=== PATIENT | male | born 2000 | race Caucasian/White ===

== ENCOUNTER 2021-10-15 18:54 | Emergency (ER) | payer SELFPAY ==
[2021-10-15 19:23] VITALS: BP 133/73; PULSE 77; RESP 18; TEMP 36.8; O2SAT 98; BMI 31.1
--- NOTE | 2021-10-15 21:40 | W.ED.ANXIETY ---
HPI - Anxiety General: Chief Complaint: Anxiety Stated Complaint: Anxiety Attack Time Seen by Provider: 10/15/21 21:17 History of Present Illness: Patient is a 21-year-old male comes to the ED with anxiety. Patient says he is been having these anxiety attacks for the past couple weeks. He says watching news causes increased anxiety and stress. Sometimes he will start feeling a little chest discomfort and feeling short of breath during more acute episodes. They resolve after he takes some deep breaths. He is currently trying to get set up with behavioral health to be evaluated for anxiety.. Denies any SI. Associated symptoms: Deny chest pain, chills, fever(s), headache(s), nausea, palpitations or vomiting Review of Systems Const: Denies: fever(s), chills or fatigue Eyes: Denies: change in vision or eye discomfort ENMT: Denies: throat pain, odynophagia, nasal discharge or nasal congestion Card: Denies: chest pain, palpitations, edema, swelling of feet/ankles, dyspnea on exertion or orthopnea Resp: Denies: dyspnea, productive cough or non-productive cough GI: Denies: abdominal pain, nausea, vomiting, diarrhea, constipation or hematochezia : Denies: flank pain, difficulty urinating, dysuria or hematuria Musc: Denies: neck pain, back pain or extremity swelling Skin/Breast: Denies: rash or new lesions Neuro: Denies: headache(s), numbness in extremities or weakness in extremities Psych: Reports: anxiety; Denies: suicidal ideation or homicidal ideation [facility] ED PFSH: Medical History No pertinent family history Surgical History No pertinent past surgical history Physical Exam Const: COMMON NORMALS: no acute distress, patient oriented x3, healthy appearing and alert GENERAL APPEARANCE: cooperative and comfortable HENMT: COMMON NORMALS: normocephalic HEAD & SCALP: normocephalic MOUTH: Normal oral and palatal mucosa present THROAT: posterior oropharynx normal and uvula midline Neck/C-Spine: COMMON NORMALS: supple GENERAL: Yes normal visual inspection Resp: COMMON NORMALS: normal respiratory effort, No retractions, No use of accessory muscles and clear to auscultation bilaterally AUSCULTATION: clear to auscultation bilaterally Cardio: COMMON NORMALS: regular rate, regular rhythm, S1 normal heart sound present, S2 normal heart sound present, No gallops present (Cardio), No clicks present (Cardio), No murmurs present (Cardio) and Peripheral pulses 2+ throughout RATE: regular rate RHYTHM: regular rhythm HEART SOUNDS: S1 normal heart sound present and S2 normal heart sound present PERIPHERAL PULSES: Peripheral pulses 2+ throughout GI: COMMON NORMALS: Normal to inspection, nondistended, normoactive bowel sounds present, Soft to palpation, non-tender and no masses PALPATION: Yes Soft to palpation : COMMON NORMALS: Yes no CVA tenderness BLADDER/KIDNEY EXAM: Yes no CVA tenderness Back/Pelvis: COMMON NORMALS: no CVA tenderness Extremity: COMMON NORMALS: normal to inspection Neuro: COMMON NORMALS: patient oriented x3 and moves all extremities SENSORIUM/ORIENTATION: Yes alert Skin: GENERAL SKIN EXAM: dry skin Course Vital Signs: Vital signs: Vital Signs Temperature 98.3 F 10/15/21 19:23 Pulse Rate 77 10/15/21 19:23 Respiratory Rate 18 10/15/21 19:23 Blood Pressure 133/73 10/15/21 19:23 Pulse Oximetry 98 10/15/21 19:23 MDM - Anxiety Medical Decision Making Patient is a healthy-appearing 21-year-old male comes to the ED with acute anxiety. He has been having these episodes for the past couple weeks and is currently trying to get in with behavioral health to be evaluated for anxiety. Denies any SI or HI. Vitals are stable. Patient appears in no acute distress or pain here in the ED. Patient was given a dose of Ativan to help with anxiety and was discharged home with a prescription for Vistaril. I placed an order with case management for patient be set up with a referral to behavioral health for follow-up. Return to ED precautions given. Patient understood and agreed with plan. Discharge Plan Discharge Patient Disposition: Home Clinical Impression: Acute anxiety Condition: Stable Prescriptions: New Vistaril 50 mg capsule 50 mg PO Q8H PRN (Reason: acute anxiety) Qty: 20 0RF Discharge Orders: Discharge ED (Routine); Ordered 10/15/21 Ordered By: Sukhi Stanley Referrals: Zaheer Tyson DO [Primary Care Provider] - Discharge Diet: Regular Discharge Activity: Increase activity as tolerated Patient Instructions: Anxiety (ED) Activity Restrictions/Additional Instructions: Follow-up with medical provider as directed in the next 5 to 10 days for reevaluation. Case management should be contacting you in the next several days to set up an appointment with behavioral health. Take medication as prescribed. Vistaril can cause some drowsiness so do not take during the day if you are going to be driving or operating any machinery. Return to the ER or your medical provider if condition worsens. Please read and understand discharge instructions. Thank you for choosing [facility] for your healthcare needs today. Please realize this is an emergency room and that we are providing you with a medical screening exam and this may not be complete and all inclusive of all the testing and or work up that you may need to determine your ailment or severity of your illness. It is very important that you follow up as instructed or that you return to the Emergency Department should you have concerns or if your condition changes or worsens in any way. Coding Level of Care Code ED Wireless Cellular Technician for Demetrio Randall Exam Comprehensive
[2021-10-15] MEDS: LORazepam 1 mg Tablet PO (22:03)
--- NOTE | 2021-10-18 13:58 | DCPLANNER ---
sports manager had message to speak with patient about services at [facility]. sports manager spoke with patient about how to get started at [facility]. sports manager told patient to go to [facility] anyday of the week from 7:30 - 3:00 to get the new patient paperwork, fill it out and turn it back in. After the paperwork is filled out and turned in, then clinic will schedule the initial assessment. Patient stated that he understood, and that he will get paperwork and fill it out.
== END 2021-10-15 22:04 | disposition home or self-care (01) ==
PROVIDERS: Emergency Provider Physician Assistant; PCP Internal Medicine
DX: F41.9 Anxiety disorder, unspecified (principal)
CPT/HCPCS: 99283

== ENCOUNTER 2021-11-28 15:40 | Emergency (ER) | payer SELFPAY ==
[2021-11-28 16:01] VITALS: BP 129/73; PULSE 87; RESP 13; TEMP 36.8; O2SAT 98; BMI 31.1
--- NOTE | 2021-11-28 16:11 | ED_ITS ---
HPI - Eye Problem General: Chief complaint: Eye Problems Stated complaint: Metal in left eye Time Seen by Provider: 11/28/21 16:06 Source: patient Mode of arrival: ambulatory Limitations: no limitations History of Present Illness: 21-year-old male states he was grinding metal an hour ago he states he was wearing a face shield states that it felt a piece metal get into his left eye states has been able to see it was unable to remove the piece of metal. States is causing him some pain he rates pain a 6 out of 10 denies any change in his vision denies any other injuries Associated symptoms: Denies fever(s), headache(s), nausea, neck pain or vomiting Review of Systems Const: Denies: fever(s), chills, body aches or change in appetite Eyes: Reports: eye discomfort ENMT: Denies: throat pain or dental pain Card: Denies: chest pain Resp: Denies: dyspnea GI: Denies: abdominal pain, nausea, vomiting or diarrhea : Denies: dysuria Musc: Denies: neck pain or back pain Skin/Breast: Denies: rash Neuro: Denies: headache(s) Psych: Denies: depression Abbe/Lymph: Denies: easy bruising All/Imm: Denies: urticaria PFSH ED PFSH: Medical History No pertinent family history Surgical History No pertinent past surgical history Physical Exam Const: COMMON NORMALS: no acute distress, patient oriented x3 and healthy appearing HENMT: COMMON NORMALS: normocephalic and atraumatic HEAD & SCALP: normocephalic and atraumatic Eye: COMMON NORMALS: Equal, round and reactive pupils present and EOMs intact bilaterally PUPIL: Yes Equal, round and reactive pupils present OTHER: Foreign body noted to left cornea Neck/C-Spine: COMMON NORMALS: full ROM and supple Chest: COMMONS NORMALS: normal inspection of the chest and normal palpation of entire chest wall Resp: COMMON NORMALS: normal respiratory effort, No retractions, No use of accessory muscles and clear to auscultation bilaterally AUSCULTATION: clear to auscultation bilaterally Cardio: COMMON NORMALS: regular rate, regular rhythm and No murmurs present (Cardio) RATE: regular rate RHYTHM: regular rhythm GI: COMMON NORMALS: Normal to inspection, nondistended, normoactive bowel sounds present, Soft to palpation, non-tender and no masses PALPATION: Yes S oft to palpation Extremity: COMMON NORMALS: normal to inspection and full ROM Neuro: COMMON NORMALS: patient oriented x3, moves all extremities and no focal motor deficits Psych: COMMON NORMALS: mental status grossly normal, Normal thought process present and cooperative THOUGHT PROCESS: Normal thought process present Skin: COMMON NORMALS: no rashes or lesions noted and no wounds GENERAL SKIN EXAM: no rashes or lesions noted Course Vital Signs: Vital signs: Vital Signs Temperature 98.3 F 11/28/21 16:01 Pulse Rate 87 11/28/21 16:01 Respiratory Rate 13 11/28/21 16:01 Blood Pressure 129/73 11/28/21 16:01 Pulse Oximetry 98 11/28/21 16:01 MDM - Eye Problem Medical Decision Making Patient presents here with foreign body to his left eye was able to remove a large piece of metal with 20-gauge IV plastic catheter he still did have a rust ring who do not have any beds for the bur drill here I spoke to ophthalmology they are to see him tomorrow. Discharge Plan Discharge Patient Disposition: Home Clinical Impression: Foreign body, eye Qualifiers: Encounter type: initial encounter Laterality: right Qualified Code(s): T15.91XA - Foreign body on external eye, part unspecified, right eye, initial encounter Condition: Stable Prescriptions: New erythromycin 5 mg/gram (0.5 %) ointment 1 applic ophthalmic (eye) Q8H 5 Days Qty: 3.5 0RF No Action Vistaril 50 mg capsule 50 mg PO Q8H PRN (Reason: acute anxiety) Qty: 20 0RF Discharge Orders: Discharge ED (Routine); Ordered 11/28/21 Ordered By: Francisco Javier Meyer Referrals: Blas Barillas MD [Physician] - 1-3 days Zaheer Tyson DO [Primary Care Provider] - Discharge Diet: Advance as tolerated Discharge Activity: Resume usual activity Patient Instructions: Eye Foreign Body (ED) Coding Level of Care Code ED Gymnastics Coach Or Instructor for g Fwd Exam Comprehensive
[2021-11-28] MEDS: tetracaine 0.5% Op Soln 4 mL Btl 1 DROP EYE-LEFT (16:14)
--- NOTE | 2021-11-29 09:34 | DCPLANNER ---
Addendum entered by Renetta Fabian 11/30/21 13:32: geothermal plant manager called the office of Dr. Barillas to confirm that clinic received patients information. geothermal plant manager was told that patient did receive the referral, that an appointment was scheduled and that patient refused appointment, he stated that he could not pay for the visit. Original Note: geothermal plant manager had message to schedule a follow up appointment for patient with Dr. Barillas. geothermal plant manager faxed patients information to the office of Dr. Barillas. Patients information will be printed and reviewed, clinic will call patient with appointment information.
== END 2021-11-28 16:27 | disposition home or self-care (01) ==
PROVIDERS: Emergency Provider Emergency Medicine; PCP Internal Medicine
DX: T15.92XA Foreign body on external eye, part unspecified, left eye, initial encounter (principal); X58.XXXA Exposure to other specified factors, initial encounter
CPT/HCPCS: 99283

== ENCOUNTER 2025-02-27 01:35 | Inpatient (IN) | payer SELFPAY ==
[2025-02-27 02:00] VITALS: BP 150/86; PULSE 110; RESP 18; TEMP 36.8; O2SAT 97; BMI 34.5
--- NOTE | 2025-02-27 02:11 | XRR_ITS ---
PROCEDURE INFORMATION: Exam: XR Chest Exam date and time: 02/27/2025 2:18 AM Age: 25 years old Clinical indication: Other: Bh screening; Additional info: Psych TECHNIQUE: Imaging protocol: Radiologic exam of the chest. Views: 1 view. COMPARISON: No relevant prior studies available. FINDINGS: Lungs: Questionable mild airspace disease in the left lung base near the cardiac apex. Mild haziness in the medial retrocardiac region as well. Right lung appears grossly clear. Pleural spaces: Unremarkable. No pleural effusion. No pneumothorax. Heart/Mediastinum: Unremarkable. No cardiomegaly. Bones/joints: Unremarkable. XR/XR chest 1V portable [id number] IMPRESSION: Questionable left basilar airspace disease.
--- NOTE | 2025-02-27 02:12 | ED.C_ITS ---
HPI - Psych 2 General: Chief Complaint: Psychiatric Symptoms Stated Complaint: Just wanting to be seen Time Seen by Provider: 02/27/25 02:11 History of Present Illness: 25-year-old man who presents the emergen cy room with depression and alcohol problems and now thoughts of wanting to kill himself. He does not have a specific plan. He has no previous psychiatric history. He does admit to using alcohol today. Related Data Previous Rx's ?Medication ?Instructions ?Recorded hydroxyzine pamoate 50 mg capsule 50 mg PO Q8H PRN acu te anxiety #20 10/15/21 (Vistaril) caps Allergies Allergy/AdvReac Type Severity Reaction Status Date / Time No Known Allergies Allergy Verified 02/27/25 02:06 Review of Systems 2 Narrative: Constitutional symptoms: Negative except as documented in HPI. Skin symptoms: Negative except as documented in HPI. Eye symptoms: Negative except as documented in HPI. ENMT symptoms: Negative except as documented in HPI. Respiratory symptoms: Negative except as documented in HPI. Cardiovascular symptoms: Negative except as documented in HPI. Gastrointestinal symptoms: Negative except as documented in HPI. Genitourinary symptoms: Negative except as documented in HPI. Musculoskeletal symptoms: Negative except as documented in HPI. Neurologic symptoms: Negative except as documented in HPI. Psychiatric symptoms: Negative except as documented in HPI. Endocrine symptoms: Negative except as documented in HPI. PFSH ED 2 PFSH: Medical History (Updated 02/27/25 @ 03:18 by Oma Salvador MD) No pertinent family history Surgical History No pertinent past surgical history Physical Exam 2 Narrative: EXAM NARRATIVE: General: Alert, no acute distress. Skin: Warm, dry. Head: Normocephalic, atraumatic. Neck: Supple, trachea midline. Eye: Extraocular movements are intact. Ears, nose, mouth and throat: mucosa moist. Cardiovascular: Regular, Normal peripheral perfusion. Respiratory: Lungs are clear to auscultation, respirations are non-labored, breath sounds are equal, Symmetrical chest wall expansion. Gastrointestinal: Soft, Nontender, Non distended Musculoskeletal: Normal ROM, no deformity. Neurological: Alert and oriented, No focal neurological deficit observed. Psychiatric: Cooperative, appropriate mood & affect. Course 2 Vital Signs: Vital signs: Vital Signs Temperature 98.3 F 02/27/25 02:00 Pulse Rate 110 H 02/27/25 02:00 Respiratory Rate 18 02/27/25 02:00 Blood Pressure 150/86 02/27/25 02:00 Pulse Oximetry 97 02/27/25 02:00 Oxygen Delivery Me thod Room Air 02/27/25 02:00 MDM - Psych Medical Decision Making Differential diagnosis: Patient with reported depression and suicidal ideation. concerns for infection, alcohol intoxication, cardiac issues or other medical problems prior to psychiatric admission. Workup: labwork, ekg ordered to evaluate the pathologies and to clear the patient medically prior to psychiatric admission EKG: Time 327. Rate 91. Normal sinus rhythm, No ST-T changes, no ectopy, normal TX & QRS intervals, This was reviewed and interpreted by myself the ER physician at 335 Chest x-ray: No acute process. No infiltrate. No pneumothorax. This was reviewed and interpreted by myself the emergency room physician. I also reviewed the radiology report. Patient does not have any symptoms of pneumonia so this questionable left basilar airspace disease is probably atelectasis Lab Review: Laboratory results were reviewed and interpreted by myself the emergency room physician. - Medically cleared. - EKG shows no ischemic changes. - Blood alcohol level is 179 initially -Tylenol and salicylate levels are negative. - Drug screen is negative - No signs of infection, urinalysis clear and white count is not elevated - No anemia. - BUN and creatinine are within normal limits. ?Flu and COVID are negative Consultation: Assessment and plan: Suicidal ideation Depression Alcohol intoxication Alcohol abuse -Admission to neuropsychiatric unit for continued evaluation and treatment. Patient will require transfer to an outside facility. - All lab work was reviewed and interpreted personally by myself, the ER physician - Evaluation and treatment of this problem were appropriate in the emergency setting Lab Data 02/27/25 02:33 02/27/25 02:33 Radiology Impressions Chest X-Ray 02/27/25 02:11 IMPRESSION: Questionable left basilar airspace disease. Laboratory Results WBC 8.74 10^3/uL (3.29-11.43) 02/27/25 02:33 RBC 5.44 10^6/uL (3.85-5.65) 02/27/25 02:33 Hgb 16.70 g/dL (11.27-16.99) 02/27/25 02:33 Hct 47.8 % (37-53) 02/27/25 02:33 MCV 87.9 fl (82-101) 02/27/25 02:33 MCH 30.7 pg (27-33) 02/27/25 02:33 MCHC 34.9 g/dL (30-55) 02/27/25 02:33 RDW 12.2 % (12.1-15.1) 02/27/25 02:33 Plt Count 292 10^3/cmm (157-399) 02/27/25 02:33 MPV 9.9 fL (7.4-10.4) 02/27/25 02:33 Neut % (Auto) 60.3 % 02/27/25 02:33 Lymph % (Auto) 28.1 % 02/27/25 02:33 Mercer % (Auto) 6.3 % 02/27/25 02:33 Eos % (Auto) 3.3 % 02/27/25 02:33 Baso % (Auto) 0.6 % 02/27/25 02:33 Neut # (Auto) 5.27 10^3/uL (1.8-7.7) 02/27/25 02:33 Lymph # (Auto) 2.5 10^3/uL (0.8-4.8) 02/27/25 02:33 [place]cer # (Auto) 0.6 10^3/uL (0.2-0.9) 02/27/25 02:33 Eos # (Auto) 0.3 10^3/uL (0.0-0.8) 02/27/25 02:33 Baso # (Auto) 0.1 10^3/uL (0.0-0.1) 02/27/25 02:33 Nucleated RBC % (auto) 0 % 02/27/25 02:33 Nucleated RBCs # 0.0 /100WBC 02/27/25 02:33 Sodium 140 mmol/L (136-145) 02/27/25 02:33 Potassium 3.8 mmol/L (3.5-5.1) 02/27/25 02:33 Chloride 104 mmol/L (98-107) 02/27/25 02:33 Carbon Dioxide 20 mmol/L (22-29) L 02/27/25 02:33 Anion Gap 19.8 (5-19) H 02/27/25 02:33 BUN 9 mg/dL (6-20) 02/27/25 02:33 Creatinine 1.0 mg/dL (0.7-1.2) 02/27/25 02:33 GFR Calculation 91.0 mL/min (90-130) 02/27/25 02:33 Glucose 100 mg/dL (65-115) 02/27/25 02:33 Calculated Osmolality 289 mOsm/kg (285-295) 02/27/25 02:33 Calcium 9.0 mg/dL (8.5-10.5) 02/27/25 02:33 Total Bilirubin 0.5 mg/dL (0.15-1.2) 02/27/25 02:33 AST 24 U/L (0-40) 02/27/25 02:33 ALT 41 U/L (0-41) 02/27/25 02:33 Alkaline Phosphatase 114 U/L (40-130) 02/27/25 02:33 Total Protein 7.9 g/dL (6.6-8.7) 02/27/25 02:33 Albumin 4.7 g/dL (3.5-5.2) 02/27/25 02:33 Globulin 3.2 g/dL (1.3-4.6) 02/27/25 02:33 TSH 2.29 uIU/mL (0.27-4.20) 02/27/25 02:33 Urine Color Yellow (Yellow) 02/27/25 02:35 Urine Appearance Clear (CLEAR) 02/27/25 02:35 Urine pH 5.5 (5-7) 02/27/25 02:35 Ur Specific [place] 1.014 (1.005-1.030) 02/27/25 02:35 Urine Protein Trace (Negative) A 02/27/25 02:35 Urine Glucose (UA) Negative (Normal) 02/27/25 02:35 Urine Ketones Trace (Negative) 02/27/25 02:35 Urine Blood Negative (Negative) 02/27/25 02:35 Urine Nitrate Negative (Negative) 02/27/25 02:35 Urine Bilirubin Negative (Negative) 02/27/25 02:35 Urine Urobilinogen 1.0 mg/dL (Negative) 02/27/25 02:35 Ur Leukocyte Esterase Negative (Negative) 02/27/25 02:35 Urine RBC 0-2 /hpf (0-2) 02/27/25 02:35 Urine WBC 0-5 /hpf (0-5) 02/27/25 02:35 Ur Squamous Epith Cells 0-5 /hpf (0-5) 02/27/25 02:35 Amorphous Sediment Not Reportable 02/27/25 02:35 Urine Bacteria None seen /hpf (NONE) 02/27/25 02:35 Hyaline Casts 3.30 /lpf 02/27/25 02:35 Salicylates < 0.3 mg/dL (3-10) L 02/27/25 02:33 Urine Opiates Screen Negative ng/mL (Negative) 02/27/25 02:35 Acetaminophen < 5.0 ug/mL (10-30) L 02/27/25 02:33 Ur Barbiturates Screen Negative ng/mL (Negative) 02/27/25 02:35 Ur Phencyclidine Scrn Negative ng/mL (Negative) 02/27/25 02:35 Ur Amphetamines Screen Negative ng/mL (Negative) 02/27/25 02:35 U Benzodiazepines Scrn Negative ng/mL (Negative) 02/27/25 02:35 Urine Cocaine Screen Negative ng/mL (Negative) 02/27/25 02:35 U Marijuana (THC) Screen Negative ng/mL (Negative) 02/27/25 02:35 Ethyl Alcohol 179 mg/dL (0-10) H 02/27/25 02:33 Influenza A (PCR) Negative (Negative) 02/27/25 03:21 Influenza Type B (PCR) Negative (Negative) 02/27/25 03:21 RSV (PCR) Negative (Negative) 02/27/25 03:21 SARS-CoV-2 (PCR) Negative (Negative) 02/27/25 03:21 All radiology interpretation(s) finalized by discharge Discharge Plan Discharge Patient Disposition: Admitted As Inpatient Clinical Impression: Depression, Suicidal ideation, Alcohol abuse, Alcohol intoxication Condition: Stable Coding Level of Care Code ED Field Technical Support Consultant for Demetrio Randall
[2025-02-27 02:37] LABS: Hematocrit 47.8 % (37-53); Hemoglobin 16.70 g/dL (11.27-16.99); Mean Corpuscular HGB Conc 34.9 g/dL (30-55); Mean Corpuscular Hemoglobin 30.7 pg (27-33); Mean Corpuscular Volume 87.9 fl (82-101); Nucleated Red Blood Cells % 0 %; Platelet Count 292 10^3/cmm (157-399); Red Blood Count 5.44 10^6/uL (3.85-5.65); White Blood Count 8.74 10^3/uL (3.29-11.43)
[2025-02-27 02:41] LABS: Glucose Urine UA Negative (Normal); Nitrate Urine Negative (Negative); Specific Gravity, Urine 1.014 (1.005-1.030)
[2025-02-27 02:46] LABS: Add Urine Microscopic? YES
[2025-02-27 02:49] LABS: PCP Screen Urine Negative (Negative)
[2025-02-27 03:07] LABS: Alanine Aminotransferase 41 U/L (0-41); Albumin Level 4.7 g/dL (3.5-5.2); Alcohol Level 179 mg/dL (0-10); Alkaline Phosphatase 114 U/L (40-130); Anion Gap 19.8 (5-19); Aspartate Amino Transferase 24 U/L (0-40); Blood Urea Nitrogen 9 mg/dL (6-20); Calcium 9.0 mg/dL (8.5-10.5); Carbon Dioxide 20 mmol/L (22-29); Chloride 104 mmol/L (98-107); Creatinine Clr Calc Pharmacy 148.2644; Globulin 3.2 g/dL (1.3-4.6); Glucose 100 mg/dL (65-115); Osmolality Calculated 289 mOsm/kg (285-295); Potassium 3.8 mmol/L (3.5-5.1); Sodium 140 mmol/L (136-145); Thyroid Stimulating Hormone 2.29 uIU/mL (0.27-4.20); Total Protein 7.9 g/dL (6.6-8.7)
[2025-02-27 03:09] LABS: Acetaminophen < 5.0 ug/mL (10-30); Salicylate < 0.3 mg/dL (3-10)
--- NOTE | 2025-02-27 03:27 | ECG_ITS ---
[facility]25[facility]27 Pat Name: Kvng Varner Department: Room: Gender: Male Rapid Outsole Stitcher: : 2000 Requested By: Oma Patricio Order Number: [id number] Calvillo MD: Lorenzo Mendoza M.D. Measurements Intervals [place] Rate: 91 P: 73 VA: 156 QRS: 29 QRSD: 98 T: 48 QT: 333 QTc: 410 Interpretive Statements SINUS RHYTHM No previous ECG available for comparison Electronically Signed On 02-27-2025 10:20:40 CDT by Lorenzo Mendoza M.D. [email or web address] [id number]
[2025-02-27 04:04] LABS: Respiratory Syncytial Virus Ce NEGATIVE (Negative); SARS-CoV-2 PCR NEGATIVE (Negative)
--- NOTE | 2025-02-27 09:43 | PC.PHAR ---
Addendum entered by Jerri Solo 02/27/25 09:48: rx for Cipro 500mg bid, Flagyl 500mg q8h, and Promethazine 25mg q6h prn-all 3 were filled 04/10/2023. Finished therapy. Original Note: Pt has rx for Hydroxyzine pamoate 50mg q8h prn anxiety last fill 10/15/21. No other medications found.
--- NOTE | 2025-02-27 11:18 | PC.NURSE ---
Involuntary 96 hour hold rights read and reviewed with patient. Brenda from security present during reading of rights. Patient verbalized understandings and copy of rights given to patient.
[2025-02-27 14:39] VITALS: BP 126/78; PULSE 101; RESP 16; TEMP 36.7; O2SAT 95
[2025-02-27 14:57] VITALS: PULSE 72; O2SAT 99
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
[2025-02-27 16:00] VITALS: BP 126/78; PULSE 101; RESP 16; TEMP 36.7; O2SAT 95
[2025-02-27 20:00] VITALS: BP 138/80; PULSE 73; RESP 19; TEMP 36.8; O2SAT 97
[2025-02-28] VITALS: BP 118/73; PULSE 76; RESP 19; TEMP 37.1; O2SAT 98
--- NOTE | 2025-02-28 06:40 | PC.NURSE ---
pt refused vs, nurse notified, resp 17
[2025-02-28 08:00] VITALS: BP 135/76; PULSE 91; RESP 16; TEMP 36.5; O2SAT 93
[2025-02-28] MEDS: multivitamin therapeutic Tablet 1 TAB PO (08:38)
--- NOTE | 2025-02-28 09:55 | P.NPUHP_ITS ---
Providers/Chief Complaint 2 Admitting Physician: Hector Sung MD Primary Care Provider: Zaheer Tyson DO Chief Complaint: Just wanting to be seen HPI NPU History of Present Illness Kvng Varner is a 25 year old male with no prior history of psychiatric treatment who presented to the emergency department with a blood alcohol level of 179 with reports of wanting to kill himself. He had denied any specific plan on admission. He was admitted to the neuropsychiatric unit for further evaluation and treatment. The patient reports having used alcohol on the day prior to admission. He reports that he had wanted to get some help with managing his anxiety. He reports that he has had panic attacks that are often triggered by periods of feeling as if someone in his family is potentially in danger. He reports that occasionally he has these periods where he gets chest pain and shortness of breath and feels like he is going to with reports that his mind races. He reports that they typically last 20 to 30 minutes. He reports that he does have a tendency to worry excessively. He had endorsed occasionally having thoughts of not wanting to wake up but reports no plan to harm himself. He endorses he has depression from time to time. 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 He reports no anhedonia. He reports no feelings of hopelessness or worthlessness. He does report at times feeling tired but reports that he remains productive at work. He reports adequate concentration. He reports no change in appetite. He denies any manic symptoms. He denied any psychotic symptoms. He had reported no prior history of blackouts or withdrawal symptoms from alcohol use. He reports that he drinks occasionally 3-5 beers a night but states that he can drink up to a half a case of beer but reports that he would be quite inebriated. Patient denies any illicit drug use. He denied any problems with social phobia. He denied any symptom suggestive obsessive-compulsive disorder. Patient did not endorse any symptoms suggestive of posttraumatic stress disorder. He had reported no significant changes in his life or recent financial or social stressors. Inpatient psychiatric history: None Outpatient psychiatric history: None Substance abuse history: He has no history of substance abuse treatment. He reports having used marijuana a few times in his life. He reports half a pack a day smoking. He reported having used alcohol since the age of 21. Medical history none Surgical history: Appendectomy Allergies: No known drug allergies Medications: None Legal history none Family psychiatric history: Strong family history of alcohol dependence in paternal side of the family. He reports his mother takes Zoloft for anxiety and depression. Social history: He had reported no history of problems with learning. He graduated with high school with no history of special education services. He was raised in a split household has his parents were when the patient was 6 months old. He is the youngest of 4 siblings. He has 3 half-sisters on his father side. He had endorsed no prior history of sexual physical or emotional abuse. He reported having a happy childhood. He was born in [place] and raised by his parents having graduated high school and never attending college. 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 Meds NPU Home Medications ?Medication ?Instructions ?Recorded ?Confirmed ?Last Taken ?Type No Known Home Medications 02/27/2501/30 Unknown History Allergies Allergy/AdvReac Type Severity Reaction Status Date / Time No Known Allergies Allergy Verified 02/27/25 02:06 PFS NPU 2 PFS: Medical History (Updated 02/28/25 @ 13:43 by Hector Sung MD) No pertinent family history Surgical History No pertinent past surgical history Mental Status Exam 2 MSE Comments: Patient appeared his stated age. He was pleasant and cooperative on interview. He appeared in no acute distress. There was no evidence of psychomotor agitation or psychomotor retardation. Speech was normal in regards to rate, rhythm, and prosody. His mood was described as okay. His affect appeared slightly restricted. His thought process was linear logical and goal-directed. His thought content revealed no active homicidal or suicidal ideation. There was no intent or plan. He did not appear to be responding internal stimuli. There was no evidence of delusional thinking. His attention span was good. His recent and remote memory were were both grossly intact. His insight was fair. His judgment appeared fair. His impulse control appeared limited. Vitals/I&O/Wt Last Vital Signs Temp 97.7 F 02/28/25 08:00 Pulse 91 02/28/25 08:00 Resp 16 02/28/25 08:00 BP 135/76 02/28/25 08:00 Pulse Ox 93 02/28/25 08:00 O2 Del Method Room Air 02/28/25 08:00 Weight last 48 hrs Weight 115.666 kg Data NPU 02/27/25 02:33 02/27/25 02:33 A&P Assessment and plan 1. Anxiety disorder, unspecified: 2. Suicidal ideation: 3. Depression: 4. Alcohol abuse: Plan: 25-year-old male with suicidal ideation with alcohol abuse with no prior history of psychiatric treatment endorsing history of panic attacks with some triggers along with some complaints of overall anxiety and occasional depression. #1.? Engage patient in individual milieu and group therapy. #2?? Recommend sober living treatment at the highest level of care to which the patient is willing to commit #3??? CIWA for alcohol withdrawal #4?? TO-15 minute checks? #5?? Will attempt to gather collateral information PDMP PDMP Reviewed: Not Reviewed Involuntary Hold Information 2 Hold Status: Legal Status: 96 Hour Hold Date/Time Hold Expires: 03/05/25 @0240 Attestations NPU 2 Medical Necessity Statement*: Inpatient hospitalization is medically necessary and deemed to be the clinically appropriate intervention at this time. Medications will be adjusted and initiated as indicated.? The patient will be hospitalized for at least 2 midnights.? The patient?s likely length of stay is 2 days. ? Coding Level of Care Code Acute Code for [facility] Fwd Diagnoses Anxiety disorder, unspecified F41.9 Suicidal ideation R45.851 Depression F32.A Alcohol abuse F10.10
[2025-02-28 11:45] VITALS: BP 147/90; PULSE 92; RESP 16; TEMP 36.6; O2SAT 97
--- NOTE | 2025-02-28 15:03 | W.PM.NPUDCS ---
Diagnoses at Discharge Discharge Diagnosis 1. Anxiety disorder, unspecified: 2. Suicidal ideation: 3. Depression: 4. Alcohol abuse: Reason for Visit Reason for Visit: Just wanting to be seen Brief History: History of Present Illness Kvng Varner is a 25 year old male with no prior history of psychiatric treatment who presented to the emergency department with a blood alcohol level of 179 with reports of wanting to kill himself. He had denied any specific plan on admission. He was admitted to the neuropsychiatric unit for further evaluation and treatment. The patient reports having used alcohol on the day prior to admission. He reports that he had wanted to get some help with managing his anxiety. He reports that he has had panic attacks that are often triggered by periods of feeling as if someone in his family is potentially in danger. He reports that occasionally he has these periods where he gets chest pain and shortness of breath and feels like he is going to with reports that his mind races. He reports that they typically last 20 to 30 minutes. He reports that he does have a tendency to worry excessively. He had endorsed occasionally having thoughts of not wanting to wake up but reports no plan to harm himself. He endorses he has depression from time to time. 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 He reports no anhedonia. He reports no feelings of hopelessness or worthlessness. He does report at times feeling tired but reports that he remains productive at work. He reports adequate concentration. He reports no change in appetite. He denies any manic symptoms. He denied any psychotic symptoms. He had reported no prior history of blackouts or withdrawal symptoms from alcohol use. He reports that he drinks occasionally 3-5 beers a night but states that he can drink up to a half a case of beer but reports that he would be quite inebriated. Patient denies any illicit drug use. He denied any problems with social phobia. He denied any symptom suggestive obsessive-compulsive disorder. Patient did not endorse any symptoms suggestive of posttraumatic stress disorder. He had reported no significant changes in his life or recent financial or social stressors. Inpatient psychiatric history: None Outpatient psychiatric history: None Substance abuse history: He has no history of substance abuse treatment. He reports having used marijuana a few times in his life. He reports half a pack a day smoking. He reported having used alcohol since the age of 21. Medical history none Surgical history: Appendectomy Allergies: No known drug allergies Medications: None Legal history none Family psychiatric history: Strong family history of alcohol dependence in paternal side of the family. He reports his mother takes Zoloft for anxiety and depression. Social history: He had reported no history of problems with learning. He graduated with high school with no history of special education services. He was raised in a split household has his parents were when the patient was 6 months old. He is the youngest of 4 siblings. He has 3 half-sisters on his father side. He had endorsed no prior history of sexual physical or emotional abuse. He reported having a happy childhood. He was born in [place] and raised by his parents having graduated high school and never attending college. 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 Hospital Course Hospital Course The patient was started on zoloft 25mg daily to target anxiety with a plan to increase to 50mg after 1 week. During the hospitalization, the patient had routine laboratory studies which were within normal limits except for a few outliers.? Additionally, there was a general medical evaluation which was also within normal limits and revealed no new acute processes.? At the time of discharge, lethality was denied and psychosis was absent. ? Mood and anxiety were well managed.? The patient endorsed a plan to avoid all drugs of abuse and follow up with the aftercare recommendations of the treatment team.? The patient was evaluated and deemed to be absent credible lethality and had achieved the maximum benefit from an inpatient hospitalization, and so was discharged. ? Involuntary Hold Information Hold Status: Legal Status: 96 Hour Hold Date/Time Hold Expires: 03/05/240 Mental Status Exam MSE Comments: Patient appeared his stated age. He was pleasant and cooperative on interview. He appeared in no acute distress. There was no evidence of psychomotor agitation or psychomotor retardation. Speech was normal in regards to rate, rhythm, and prosody. His mood was described as okay. His affect appeared slightly restricted. His thought process was linear logical and goal-directed. His thought content revealed no active homicidal or suicidal ideation. There was no intent or plan. He did not appear to be responding internal stimuli. There was no evidence of delusional thinking. His attention span was good. His recent and remote memory were were both grossly intact. His insight was fair. His judgment appeared fair. His impulse control appeared limited. Discharge Data Studies Completed and Pending: Completed Studies During Hospitalization Category Date Time Status XR chest 1V mindi ble [id number] Stat Exams 02/27/25 02:11 Completed Radiology Impressions Chest X-Ray 02/27/25 02:11 IMPRESSION: Questionable left basilar airspace disease. Laboratory Results WBC 8.74 10^3/uL (3.2 9-11.43) 02/27/25 02:33 RBC 5.44 10^6/uL (3.8 5-5.65) 02/27/25 02:33 Hgb 16.70 g/dL (11.27 -16.99) 02/27/25 02:33 Hct 47.8 % (37-53) 02/27/25 02:33 MCV 87.9 fl (82-101) 02/27/25 02:33 MCH 30.7 pg (27-33) 02/27/25 02:33 MCHC 34.9 g/dL (30-55) 02/27/25 02:33 RDW 12.2 % (12.1-15.1 ) 02/27/25 02:33 Plt Count 292 10^3/cmm (157 -399) 02/27/25 02:33 MPV 9.9 fL (7.4-10.4) 02/27/25 02:33 Neut % (Auto) 60.3 % 02/27/25 02:33 Lymph % (Auto) 28.1 % 02/27/25 02:33 Door % (Auto) 6.3 % 02/27/25 02:33 Eos % (Auto) 3.3 % 02/27/25 02:33 Baso % (Auto) 0.6 % 02/27/25 02:33 Neut # (Auto) 5.27 10^3/uL (1.8 -7.7) 02/27/25 02:33 Lymph # (Auto) 2.5 10^3/uL (0.8- 4.8) 02/27/25 02:33 Door # (Auto) 0.6 10^3/uL (0.2- 0.9) 02/27/25 02:33 Eos # (Auto) 0.3 10^3/uL (0.0- 0.8) 02/27/25 02:33 Baso # (Auto) 0.1 10^3/uL (0.0- 0.1) 02/27/25 02:33 Nucleated RBC % (a uto) 0 % 02/27/25 02:33 Nucleated RBCs # 0.0 /100WBC 02/27/25 02:33 Sodium 140 mmol/L (136-1 45) 02/27/25 02:33 Potassium 3.8 mmol/L (3.5-5 .1) 02/27/25 02:33 Chloride 104 mmol/L (98-10 7) 02/27/25 02:33 Carbon Dioxide 20 mmol/L (22-29) L 02/27/25 02:33 Anion Gap 19.8 (5-19) H 02/27/25 02:33 BUN 9 mg/dL (6-20) 02/27/25 02:33 Creatinine 1.0 mg/dL (0.7-1. 2) 02/27/25 02:33 GFR Calculation 91.0 mL/min (90-1 30) 02/27/25 02:33 Glucose 100 mg/dL (65-115 ) 02/27/25 02:33 Calculated Osmolal ity 289 mOsm/kg (285- 295) 02/27/25 02:33 Calcium 9.0 mg/dL (8.5-10 .5) 02/27/25 02:33 Total Bilirubin 0.5 mg/dL (0.15-1 .2) 02/27/25 02:33 AST 24 U/L (0-40) 02/27/25 02:33 ALT 41 U/L (0-41) 02/27/25 02:33 Alkaline Phosphata se 114 U/L (40-130) 02/27/25 02:33 Total Protein 7.9 g/dL (6.6-8.7 ) 02/27/25 02:33 Albumin 4.7 g/dL (3.5-5.2 ) 02/27/25 02:33 Globulin 3.2 g/dL (1.3-4.6 ) 02/27/25 02:33 TSH 2.29 uIU/mL (0.27 -4.20) 02/27/25 02:33 Urine Color Yellow (Yellow) 02/27/25 02:35 Urine Appearance Clear (CLEAR) 02/27/25 02:35 Urine pH 5.5 (5-7) 02/27/25 02:35 Ur Specific Gravit y 1.014 (1.005-1.0 30) 02/27/25 02:35 Urine Protein Trace (Negative) A 02/27/25 02:35 Urine Glucose (UA) Negative (Normal ) 02/27/25 02:35 Urine Ketones Trace (Negative) 02/27/25 02:35 Urine Blood Negative (Negati ve) 02/27/25 02:35 Urine Nitrate Negative (Negati ve) 02/27/25 02:35 Urine Bilirubin Negative (Negati ve) 02/27/25 02:35 Urine Urobilinogen 1.0 mg/dL (Negati ve) 02/27/25 02:35 Ur Leukocyte Shireen ase Negative (Negati ve) 02/27/25 02:35 Urine RBC 0-2 /hpf (0-2) 02/27/25 02:35 Urine WBC 0-5 /hpf (0-5) 02/27/25 02:35 Ur Squamous Epith Cells 0-5 /hpf (0-5) 02/27/25 02:35 Amorphous Sediment Not Reportable 02/27/25 02:35 Urine Bacteria None seen /hpf (N ONE) 02/27/25 02:35 Hyaline Casts 3.30 /lpf 02/27/25 02:35 Salicylates < 0.3 mg/dL (3-10 ) L 02/27/25 02:33 Urine Opiates Scre en Negative ng/mL (N egative) 02/27/25 02:35 Acetaminophen < 5.0 ug/mL (10-3 0) L 02/27/25 02:33 Ur Barbiturates Sc reen Negative ng/mL (N egative) 02/27/25 02:35 Ur Phencyclidine S crn Negative ng/mL (N egative) 02/27/25 02:35 Ur Amphetamines Sc reen Negative ng/mL (N egative) 02/27/25 02:35 U Benzodiazepines Scrn Negative ng/mL (N egative) 02/27/25 02:35 Urine Cocaine Scre en Negative ng/mL (N egative) 02/27/25 02:35 U Marijuana (THC) Screen Negative ng/mL (N egative) 02/27/25 02:35 Ethyl Alcohol 179 mg/dL (0-10) H 02/27/25 02:33 Influenza A (PCR) Negative (Negati ve) 02/27/25 03:21 Influenza Type B ( PCR) Negative (Negati ve) 02/27/25 03:21 RSV (PCR) Negative (Negati ve) 02/27/25 03:21 SARS-CoV-2 (PCR) Negative (Negati ve) 02/27/25 03:21 Vitals: Last Vital Signs Temp 97.9 F 02/28/25 11:45 Pulse 92 02/28/25 11:45 Resp 16 02/28/25 11:45 BP 147/90 02/28/25 11:45 Pulse Ox 97 02/28/25 11:45 O2 Del Method Room Air 02/28/25 11:45 Discharge Plan Discharge Patient Disposition: Home Condition: Stable Prescriptions: New sertraline 50 mg Tablet 25 mg PO DIRECTED 30 Days Qty: 24 1RF Rx Instructions: 1/2 tablet daily x 2 weeks then increase to one tablet daily. Discharge Order = DC NOW: Discharge Order (Routine); Ordered 02/28/25 Ordered By: Hector Sung Referrals: [facility] [Other] - 1-3 days Referral Note: A referral was made. Call the number listed if you do not receive a call by the middle of the week. [facility] [Outside] - 03/04/25 9:30 am Referral Note: Initial assessment for services with [facility]. Arrive 9:30am for a 10am appointment. Zaheer Tyson DO [Primary Care Provider, Internal Medicine] Discharge Diet: Usual diet Discharge Activity: Resume usual activity Patient Instructions: Depression, Sertraline (By mouth) (Zoloft), Stress (DC), Depression (DC), Help Prevent Suicide (DC), Opioid Safety, Patient Portal & Ivette Instructions Discharge Attestations NPU Time Spent in Discharge Care*: less than 30 min Specific Discharge Activities: Specific discharge activities: educating patient, discussing with manager of case management/social workers/dc planners and documenting/other paperwork Coding Level of Care Code Acute Code for [facility] Fwd Diagnoses Anxiety disorder, unspecified F41.9 Suicidal ideation R45.851 Depression F32.A Alcohol abuse F10.10
[2025-02-28 15:16] VITALS: BP 147/90; PULSE 92; RESP 16; TEMP 36.6; O2SAT 97
== END 2025-02-28 15:39 | disposition home or self-care (01) | DRG 880 ==
LOC: ER 03:25 → NP 13:56
PROVIDERS: Admitting Provider Psychiatry & Neurology Psychiatry; Emergency Provider Emergency Medicine; PCP Internal Medicine; Visit Provider Psychiatry & Neurology Psychiatry
DX: F41.0 Panic disorder [episodic paroxysmal anxiety] (principal); R45.851 Suicidal ideations; F10.10 Alcohol abuse, uncomplicated; Y90.6 Blood alcohol level of 120-199 mg/100 ml; F32.A Depression, unspecified
CPT/HCPCS: 36415; 71045; 80053; 80306; 80307; 81001; 84443; 85025; 87637; 93005; 97165; 99285; J9999